=== PATIENT | male | born 1970 | race Caucasian/White ===

== ENCOUNTER → 2023-07-01 11:34 | Outpatient (CLI) | payer OTHER ==
[~2023-07-01 11:34] MED LIST: FLAGYL500MG PO; GAVISCON LIQUI355 ML; OMEPRAZOLE20 MG; ZITHROMAX500 MG PO
[2023-07-01 13:28] LABS: CREATININE SERUM 1.09 mg/dL (0.70-1.30)
== END | disposition home or self-care (01) ==
LOC: LAB 11:34
PROVIDERS: ATTEND Radiology Diagnostic Radiology
DX: R10.30 Lower abdominal pain, unspecified (principal)

== ENCOUNTER 2023-07-06 07:22 | Outpatient (CLI) | payer OTHER | END 2023-07-06 07:30 | disposition home or self-care (01) | LOC: TOM 07:22 | DX: K76.89 Other specified diseases of liver (principal); E78.00 Pure hypercholesterolemia, unspecified ==

== ENCOUNTER 2024-08-15 07:21 | Outpatient (CLI) | payer OTHER | END 2024-08-15 07:33 | disposition home or self-care (01) | LOC: SONOGRAMA 07:21 | PROVIDERS: ATTEND General Practice | DX: E78.00 Pure hypercholesterolemia, unspecified (principal); K76.89 Other specified diseases of liver ==